=== PATIENT | male | born 1945 | race Caucasian/White ===

== ENCOUNTER 2021-05-17 12:32 | Outpatient (CLI) | payer MEDICARE, BC | END 2021-05-17 12:33 | disposition home or self-care (01) | LOC: MRI 12:32 | PROVIDERS: ATTEND Psychiatry & Neurology Neurology | DX: R09.89 Other specified symptoms and signs involving the circulatory and respiratory systems (principal); I67.82 Cerebral ischemia; M47.816 Spondylosis without myelopathy or radiculopathy, lumbar region; M51.36 Other intervertebral disc degeneration, lumbar region; M48.062 Spinal stenosis, lumbar region with neurogenic claudication | CPT/HCPCS: 70553; 72148 ==